=== PATIENT | male | born 1975 | race Caucasian/White ===

== ENCOUNTER 2018-01-21 22:44 | Inpatient (IN) | payer BC, OTHER ==
[~2018-01-21] VITALS: Ht 190.5 cm; Wt 121.8 kg
[~2018-01-21 22:44] MED LIST: ASPI-614 PO; ATOR40TA PO; CHOL400T55 PO; CITA10TA4 PO; CITA20TA9 PO; CITALOPRAM PO; FLUT1DIS3 INH; HYDR12.547 PO; LACT1TAB4 PO; LISI-167 PO; LISI-468 PO; MONT10TA6 PO; MUTIVITAMIN
[2018-01-21] MEDS ORDERED: CITA10TA4 PO (23:14)
[2018-01-21] MEDS ORDERED: OMEP-110 PO (23:14)
[2018-01-21] MEDS ORDERED: MONT10TA9 PO (23:14)
[2018-01-21] MEDS ORDERED: ATOR10TA9 PO (23:14)
[2018-01-21 23:38] LABS: BASOPHILS # (AUTO) 0.02 x10^3/uL (0-0.1); BASOPHILS % (AUTO) 0 % (0-1); EOSINOPHILS # (AUTO) 0.12 x10^3/uL (0-0.4); EOSINOPHILS % (AUTO) 1 % (1-7); LYMPHOCYTES # (AUTO) 2.15 x10^3/uL (1-3.4); LYMPHOCYTES % (AUTO) 24 % (22-44); MD NO; MEAN CORPUSCULAR HEMOGLOBIN 31.2 pg (27.5-34.5); MEAN CORPUSCULAR HGB CONC 34.2 g/dL (33.2-36.2); MEAN CORPUSCULAR VOLUME 91.4 fL (81-97); MEAN PLATELET VOLUME 6.9 fL (7.4-10.4); MONOCYTES # (AUTO) 0.75 x10^3/uL (0.2-0.8); MONOCYTES % (AUTO) 8 % (2-9); NEUTROPHILS # (AUTO) 5.95 x10^3/uL (1.8-6.8); NEUTROPHILS % (AUTO) 66 % (42-75); PLATELET COUNT 290 x10^3/uL (130-400); RED BLOOD COUNT 4.87 x10^6/uL (4.38-5.82); RED CELL DISTRIBUTION WIDTH 13.3 % (9.4-14.8)
[2018-01-21 23:42] LABS: ALBUMIN 3.9 g/dL (3.4-5.0); ANION GAP 9 mmol/L (5-15); CALCIUM 8.8 mg/dL (8.5-10.1); CHLORIDE 105 mmol/L (98-107); CREATININE 0.89 mg/dL (0.7-1.3)
[2018-01-22] MEDS ORDERED: ASPIRIN 81 MG TABLET CHEW PO ONE (00:30)
[2018-01-22] MEDS ORDERED: LORazepam 2 MG/ML, 1ML IVPush ONE (00:30)
[2018-01-22] MEDS ORDERED: ASPIRIN 81 MG TABLET CHEW ONE (00:45)
[2018-01-22] MEDS ORDERED: LORazepam 2 MG/ML, 1ML ONE (00:45)
[2018-01-22] MEDS ORDERED: SODIUM CHLORIDE 0.9% 1,000 ML IV SCH (00:48)
[2018-01-22] MEDS ORDERED: LABETALOL 5MG/ML, 20ML IVPush PRN (01:00)
[2018-01-22] MEDS ORDERED: BISACODYL 10 MG SUPP PR PRN (01:00)
[2018-01-22] MEDS ORDERED: ONDANSETRON 2MG/ML, 2ML IVPush PRN (01:00)
[2018-01-22] MEDS ORDERED: IBUPROFEN 600 MG TABLET PO PRN (01:00)
[2018-01-22] MEDS ORDERED: PROMETHAZINE 25 MG/ML, 1ML IM PRN (01:00)
[2018-01-22] MEDS ORDERED: ONDANSETRON ODT 4 MG PO PRN (01:00)
[2018-01-22] MEDS ORDERED: NITROGLYCERIN 0.4 MG BOTTLE (25 TABS) SL PRN (01:00)
[2018-01-22] MEDS ORDERED: morphine SULFATE 10 MG/ML, 1ML IVPush PRN (01:00)
[2018-01-22] MEDS ORDERED: hydrALAzine 20 MG/ML, 1ML IVPush PRN (01:00)
[2018-01-22] MEDS ORDERED: DOCUSATE 100 MG CAPSULE PO PRN (01:00)
[2018-01-22] MEDS ORDERED: POLYETHYLENE GLYCOL 17 GM PACKET PO PRN (01:00)
[2018-01-22 01:42] VITALS: BP 150/100
[2018-01-22] MEDS ORDERED: CELEXA MC SCH (02:00)
[2018-01-22 02:04] LABS: FREE T4 (FREE THYROXINE) 1.02 ng/dL (0.76-1.46); HEMOGLOBIN A1C 5.7 % (4.2-6.3); THYROID STIMULATING HORMONE 4.89 mIU/L (0.358-3.740)
[2018-01-22] MEDS ORDERED: LISINOPRIL 10 MG TABLET PO ONE (02:30)
[2018-01-22] MEDS: HEPARIN 5,000 UNITS/ML, 1ML SQ SCH ×3 (03:34→20:04)
[2018-01-22 03:48] LABS: MICROSCOPIC NOT IND
[2018-01-22 03:49] LABS: CULTURE INDICATED? NO
[2018-01-22 07:51] LABS: LDL/HDL RATIO 2.3 (0.5-3.0)
[2018-01-22] MEDS: CHOLECALCIFEROL 400 UNITS TABLET PO SCH (08:13)
[2018-01-22] MEDS: ASPIRIN 325 MG TABLET EC PO SCH (08:13)
[2018-01-22] MEDS: CITALOPRAM 10 MG TABLET PO SCH (08:13)
[2018-01-22] MEDS: HYDROCHLOROTHIAZIDE 12.5 MG CAPSULE PO SCH (08:13)
[2018-01-22] MEDS: LISINOPRIL 20 MG TABLET PO SCH (08:14)
[2018-01-22] MEDS: MONTELUKAST 10 MG TABLET PO SCH (08:14)
[2018-01-22] MEDS: MULTIVITAMIN 1 TABLET PO SCH (08:14)
[2018-01-22] MEDS: OMEPRAZOLE 20 MG CAPSULE.DR PO SCH (08:14)
[2018-01-22] MEDS: FLUTICASONE/VILANTEROL 100-25MCG/INH INH SCH (08:14)
[2018-01-22 08:22] VITALS: BP 169/106
[2018-01-22] MEDS ORDERED: CITALOPRAM 20 MG TABLET PO SCH (09:00)
[2018-01-22] MEDS ORDERED: TEMPLATE NON-FORMULARY MED. (Montelukast Sodium** (Singulair**) 10 MG) PO SCH (09:00)
[2018-01-22 11:17] LABS: TROPONIN I 0.751 ng/mL (0.000-0.045)
[2018-01-22 14:17] VITALS: BP 153/97
[2018-01-22 20:00] VITALS: BP 152/87
[2018-01-22] MEDS ORDERED: ATORVASTATIN 10 MG TABLET PO SCH (21:00)
[2018-01-23 02:16] VITALS: BP 135/92
[2018-01-23] MEDS: ASPIRIN 325 MG TABLET EC PO SCH (04:21)
[2018-01-23] MEDS: HEPARIN 5,000 UNITS/ML, 1ML SQ SCH ×2 (04:21→11:35)
[2018-01-23 05:33] LABS: BASOPHILS # (AUTO) 0.05 x10^3/uL (0-0.1); BASOPHILS % (AUTO) 1 % (0-1); EOSINOPHILS # (AUTO) 0.33 x10^3/uL (0-0.4); EOSINOPHILS % (AUTO) 4 % (1-7); LYMPHOCYTES # (AUTO) 2.79 x10^3/uL (1-3.4); LYMPHOCYTES % (AUTO) 36 % (22-44); MD NO; MEAN CORPUSCULAR HEMOGLOBIN 31.3 pg (27.5-34.5); MEAN CORPUSCULAR VOLUME 92.2 fL (81-97); MEAN PLATELET VOLUME 7.1 fL (7.4-10.4); MONOCYTES # (AUTO) 0.95 x10^3/uL (0.2-0.8); MONOCYTES % (AUTO) 12 % (2-9); NEUTROPHILS # (AUTO) 3.62 x10^3/uL (1.8-6.8); NEUTROPHILS % (AUTO) 47 % (42-75); PLATELET COUNT 266 x10^3/uL (130-400); RED BLOOD COUNT 4.96 x10^6/uL (4.38-5.82); RED CELL DISTRIBUTION WIDTH 13.3 % (9.4-14.8)
[2018-01-23 05:48] LABS: CHLORIDE 105 mmol/L (98-107)
[2018-01-23 05:56] LABS: ALANINE AMINOTRANSFERASE 59 U/L (12-78); ALBUMIN 3.8 g/dL (3.4-5.0); ALKALINE PHOSPHATASE 57 U/L (45-117); ANION GAP 11 mmol/L (5-15); BILIRUBIN,TOTAL 0.9 mg/dL (0.2-1.0); CALCIUM 9.1 mg/dL (8.5-10.1); CHOL/HDL RATIO 3.9; CHOLESTEROL, TOTAL 155 mg/dL (140-239); CREATININE 0.92 mg/dL (0.7-1.3); HDL CHOL % 26 % (26-37); HDL CHOLESTEROL (DIRECT) 40 mg/dL (40-60); LDL CHOLESTEROL,CALCULATED 73 mg/dL (54-169); LDL/HDL RATIO 1.8 (0.5-3.0); TOTAL PROTEIN 7.7 g/dL (6.4-8.2); TRIGLYCERIDES 211 mg/dL (50-200); VLDL CHOLESTEROL 42 mg/dL (0-25)
[2018-01-23 06:44] VITALS: BP 109/68
[2018-01-23] MEDS: FLUTICASONE/VILANTEROL 100-25MCG/INH INH SCH (11:15)
[2018-01-23] MEDS: HYDROCHLOROTHIAZIDE 12.5 MG CAPSULE PO SCH (11:27)
[2018-01-23] MEDS: MULTIVITAMIN 1 TABLET PO SCH (11:28)
[2018-01-23] MEDS: LISINOPRIL 20 MG TABLET PO SCH (11:28)
[2018-01-23] MEDS: CITALOPRAM 10 MG TABLET PO SCH (11:28)
[2018-01-23] MEDS: CHOLECALCIFEROL 400 UNITS TABLET PO SCH (11:28)
[2018-01-23] MEDS: MONTELUKAST 10 MG TABLET PO SCH (11:28)
[2018-01-23] MEDS: OMEPRAZOLE 20 MG CAPSULE.DR PO SCH (11:36)
[2018-01-23 14:23] VITALS: BP 116/76
[2018-01-23] MEDS ORDERED: METO25TA91 PO (14:24)
[2018-01-24] MEDS ORDERED: METOPROLOL SUCCINATE 25 MG TAB.ER.24H PO SCH (06:00)
== END 2018-01-23 17:05 | disposition home or self-care (01) | DRG 301 ==
LOC: ED 23:59 → EDIP 01-22 00:43 → 5SO 01-22 01:38 → DCLOUNGE 01-23 16:53
PROVIDERS: ADMIT Internal Medicine; ATTEND Internal Medicine
DX: I77.810 Thoracic aortic ectasia (principal); E66.9 Obesity, unspecified; E78.5 Hyperlipidemia, unspecified; F41.1 Generalized anxiety disorder; I10 Essential (primary) hypertension; F12.90 Cannabis use, unspecified, uncomplicated; R79.89 Other specified abnormal findings of blood chemistry; J45.909 Unspecified asthma, uncomplicated; K21.9 Gastro-esophageal reflux disease without esophagitis; Z68.33 Body mass index [BMI] 33.0-33.9, adult; Z79.82 Long term (current) use of aspirin; Z79.899 Other long term (current) drug therapy
CPT/HCPCS: 36415; 70450; 71045; 78452; 80048; 80053; 80061; 81003; 82040; 83036; 83735; 83880; 84439; 84443; 84484; 85025; 93005; 93017; 93306; 96374; G0378; J1644; A9502; C9898; J2060; J7030

== ENCOUNTER 2019-03-02 21:34 | Emergency (ER) | payer OTHER ==
[~2019-03-02] VITALS: Ht 190.5 cm; Wt 119.7 kg
[~2019-03-02 21:34] MED LIST changes: +ATOR10TA9 PO; +METO25TA91 PO; +MONT10TA9 PO; +OMEP-110 PO
[2019-03-02 21:40] VITALS: BP 149/103
--- NOTE | 2019-03-02 22:02 | NUR ---
PT TO ROOM PLACED ON MONITOR AND IN GOWN.
== END 2019-03-02 22:55 | disposition home or self-care (01) ==
LOC: ED 22:40
DX: R07.89 Other chest pain (principal); F41.1 Generalized anxiety disorder; F12.90 Cannabis use, unspecified, uncomplicated; I10 Essential (primary) hypertension; J45.909 Unspecified asthma, uncomplicated; I25.2 Old myocardial infarction; Z72.89 Other problems related to lifestyle
CPT/HCPCS: 93005; 99283

== ENCOUNTER → 2019-03-22 | Outpatient (CLI) | payer OTHER | END | disposition home or self-care (01) | LOC: CVU 09:43 | PROVIDERS: ATTEND Internal Medicine Cardiovascular Disease | DX: I37.1 Nonrheumatic pulmonary valve insufficiency (principal); I10 Essential (primary) hypertension; E78.5 Hyperlipidemia, unspecified | CPT/HCPCS: 93306 ==